=== PATIENT | female | born 1935 | race Caucasian/White ===

== ENCOUNTER 2019-03-05 10:53 | Emergency (ER) | payer MEDICARE, BC ==
[2019-03-05 10:58] VITALS: TEMP 97.5
[2019-03-05 11:17] LABS: BASOPHILS % (AUTO) 1 % (0-3); EOSINOPHILS % (AUTO) 3 % (0-9); HEMATOCRIT 38 % (35-47); HEMOGLOBIN 12.5 gm/dl (12.0-15.5); LYMPHOCYTES % (AUTO) 31.5 % (10-50); MEAN CORPUSCULAR HEMOGLOBIN 30.3 pg (27.0-32.0); MEAN CORPUSCULAR VOLUME 92 fL (81-99); MONOCYTES % (AUTO) 8.2 % (0-12)
[2019-03-05 11:32] LABS: ALBUMIN 3.7 gm/dl (3.4-5.0); ALKALINE PHOSPHATASE 98 IU/L (46-116); ALT 23 IU/L (14-63); AST 16 IU/L (15-37); BILIRUBIN,TOTAL 0.7 mg/dl (0.2-1.0); BLOOD UREA NITROGEN 23 mg/dl (7-18); CALCIUM 10.6 mg/dl (8.5-10.1); CARBON DIOXIDE 32.7 mEq/L (21-32); CHLORIDE 106 mMol/L (98-107); CREATININE 1.06 mg/dl (0.60-1.00); GLUCOSE 102 mg/dl (74-106); SODIUM 142 mMol/L (136-145); TOTAL PROTEIN 7.2 gm/dl (6.4-8.2); TROP I < 0.017 ng/ml (0.000-0.056)
[2019-03-05] MEDS ORDERED: SODIUM CHLORIDE 0.9% 1000ML 500 ML IV SCH (12:00)
[2019-03-05 12:54] VITALS: PULSE 59
[2019-03-05 12:58] LABS: APPEARANCE,URINE Slightly Cloudy; BILIRUBIN,URINE NEGATIVE (NEGATIVE); COLOR,URINE Yellow; GLUCOSE, URINE (UA) NEGATIVE (NEGATIVE); KETONES,URINE NEGATIVE (NEGATIVE); LEUKOCYTE ESTERASE ,URINE 2+ (NEGATIVE); NITRATE,URINE NEGATIVE (NEGATIVE); OCCULT BLOOD,URINE NEGATIVE (NEG-TRACE); PH,URINE 8.5; UROBILINOGEN,URINE 0.2 (0.2-1.0 EU)
[2019-03-05 13:10] LABS: BACTERIA 1+ (< 1+); CRYSTALS NEGATIVE (0-3 AVE/HPF); EPITHELIAL CELLS 0-2 (SQUAMOUS); RBC,URINE 0-2 (0-3AV/HPF); WBC,URINE 20-30 (0-5AV/HPF)
[2019-03-05 13:47] VITALS: BP 197/77; RESP 16; O2SAT 95
== END 2019-03-05 14:00 | disposition home or self-care (01) | DRG 690 ==
LOC: ED 10:53
DX: N30.00 Acute cystitis without hematuria (principal); E86.0 Dehydration; W18.39XA Other fall on same level, initial encounter; R42 Dizziness and giddiness; R40.2362 Coma scale, best motor response, obeys commands, at arrival to emergency department; R40.2142 Coma scale, eyes open, spontaneous, at arrival to emergency department; R40.2252 Coma scale, best verbal response, oriented, at arrival to emergency department; I50.9 Heart failure, unspecified
CPT/HCPCS: 36415; 71045; 80053; 81001; 83880; 84484; 85025; 87088; 93005; 96365; 99284; 99285